=== PATIENT | female | born 1940 | race Caucasian/White ===

== ENCOUNTER → 2019-10-17 | Day surgery (SDC) | payer MEDICARE, OTHER ==
[2019-10-14 11:46] LABS: BASOPHILS % 0.6 % (0.0-1.0); EOSINOPHILS # (AUTO) 0.2 (0.0-0.4); EOSINOPHILS % 3.3 % (0.0-6.0); HEMATOCRIT 38.5 % (34.2-44.1); HEMOGLOBIN 12.9 g/dL (12.0-16.0); LYMPHOCYTES # (AUTO) 2.2 (1.0-3.2); LYMPHOCYTES % 33.3 % (18.0-39.1); MEAN CORPUSCULAR HEMOGLOBIN 29.2 pg (28-32); MEAN CORPUSCULAR HGB CONC 33.5 g/dL (31-35); MEAN CORPUSCULAR VOLUME 87.1 fL (81-99); MONOCYTES # (AUTO) 0.4 (0.2-0.8); MONOCYTES % 6.4 % (4.4-11.3); NEUTROPHILS # (AUTO) 3.6 (2.1-6.9); NEUTROPHILS % 56.1 % (38.7-80.0); PLATELET COUNT 223 x10e3/uL (140-360); RED BLOOD COUNT 4.42 x10e6/uL (3.6-5.1); RED CELL DISTRIBUTION WIDTH 13.5 % (11.7-14.4)
--- NOTE | 2019-10-14 12:36 | Diagnostic Imaging Report ---
Exam: CHEST 2 VIEWS Date: 10/14/2019 12:31 PM INDICATION: ^[id number] ^1210 ^PRE OP Comparison: None FINDINGS: Lines/Tubes:None Lungs:The lungs are well inflated. No focal consolidation or pulmonary edema. Questionable calcified granuloma in the left upper lobe measuring up to 10 mm. Pleura:No pleural effusion. No pneumothorax. Heart/Mediastinum:The cardiomediastinal silhouette is normal in size and contour. Bones/Soft Tissues: No acute osseous abnormality. Advanced multilevel degenerative changes of the spine are noted. Upper abdomen: Unremarkable. IMPRESSION: 1. Negative for focal acute intrathoracic process. 2. There is a 1 cm nodule in left upper lobe which could relate to a calcified granuloma. Recommend obtaining any prior outside hospital imaging for comparison. If none is available recommend follow-up noncontrast nonemergent CT of the chest. Signed by: Antione Louise MD on 10/14/2019 12:33 PM
[~2019-10-17] VITALS: Ht 175.3 cm; Wt 83.0 kg
[~2019-10-17] MED LIST: ALEVE220 MG PO; BUPIVACAINE HCL 0.5% INJ 30 ML VIAL INJ ONE; CALCIUM CARBON500 MG PO; CEFAZOLIN SOD 1 GM/NS 50ML 0 ML IV ONE; CLINDAMYCIN 600MG / 50ML 50 ML IV ONE; COQ-10100 MG PO; DEXAMETHASONE SOD PHOS INJ 4 MG/ML VIAL ONE; FENTANYL CITRATE/PF 100MCG/2 ML INJ ONE; FIBER TABS625 MG PO; KETOROLAC TROMETHAMINE 30 MG/ML VIAL ONE; LIDOCAINE HCL 2% LOCAL INJ 5 ML SDV VIAL INJ ONE; LIPITOR10 MG PO; MULTI-VITAMIN1 EACH; MUPIROCIN 2% OINT 22 GM TUBE ONE; ONDANSETRON HCL INJ 2MG/ML 2ML 2 MG/ML VIAL ONE; PROPOFOL IV EMULSION 10 MG/ML 20 ML VIAL ONE; SEVOFLURANE INHAL SOLN 250 ML PEN BTL ONE; SYNTHROID112 MCG PO; TOVIAZ8 MG PO; VITAMIN D3 COM1 EACH PO; XALATAN2.5 ML
[2019-10-17 09:00] VITALS: BP 144/85
--- NOTE | 2019-10-17 09:37 | Operative Report ---
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 POSTOPERATIVE DIAGNOSIS: Stenosing tenosynovitis of right index and right middle fingers. OPERATION PERFORMED: Tenovaginotomy of right index finger. ANESTHESIA: General. HISTORY: The patient is an 78-year-old right hand-dominant female who presents with stenosing tenosynovitis of the right index and right middle fingers that is recalcitrant to conservative treatment. The risks, benefits, and alternatives of treatment were discussed with the patient and they are prepared to undergo the procedure as outlined. DESCRIPTION OF PROCEDURE: The patient was brought to the operating theater. After the induction of adequate general anesthesia, the patient was prepped and draped in a supine position. A time out was performed by the entire operating room team. An oblique incision was marked out over the A1 willi of the right index and right middle fingers. The upper extremity was exsanguinated, and a tourniquet was inflated to a pressure of 250 mmHg. The incision was made through the skin and subcutaneous tissues. All venous tributaries were controlled with bipolar cautery. The incision was deepened through the palmar tissues. The neurovascular bundles on the radial and ulnar sides of the flexor tendon sheath were identified and retracted away from the flexor tendon sheath and preserved. The A1 willi of the affected finger was identified and incised longitudinally, taking care to protect and preserve the flexor tendons within the sheath. After the complete length of the willi had been transected, the tendons were placed in a range of motion. There was noted to be good motion without any locking. The wound was then copiously irrigated with bacteriostatic saline and closed with 5-0 nylon in an interrupted horizontal mattress fashion. A Marcaine field block was performed at the operative site. The tourniquet was deflated. All the fingers pinked up nicely. A sterile bulky conforming bandage was applied to the hand, and the patient was returned to the recovery room in satisfactory condition and was discharged with a postoperative instruction sheet as well as a followup appointment. Joe Murillo MD ER/MODL /[id number]
== END | disposition home or self-care (01) ==
LOC: OR 05:40
PROVIDERS: ATTEND Plastic Surgery
DX: M65.321 Trigger finger, right index finger (principal); M65.331 Trigger finger, right middle finger; K21.9 Gastro-esophageal reflux disease without esophagitis; E78.5 Hyperlipidemia, unspecified; I45.10 Unspecified right bundle-branch block; E07.9 Disorder of thyroid, unspecified; Z88.1 Allergy status to other antibiotic agents; Z01.810 Encounter for preprocedural cardiovascular examination; Z01.812 Encounter for preprocedural laboratory examination; Z01.818 Encounter for other preprocedural examination; Z11.59 Encounter for screening for other viral diseases
CPT/HCPCS: 26055 ×2; 36415; 71046; 85025; 93005; J1100; J1885; J2001; J2405; J2704; J3010; U0002; J0690